=== PATIENT | male | born 1965 | race African-American/Black ===

== ENCOUNTER 2017-09-14 12:45 | Emergency (ER) | payer OTHER ==
[~2017-09-14] VITALS: Ht 165.1 cm; Wt 83.9 kg
[2017-09-14] MEDS ORDERED: LIPITOR10 MG PO (13:01)
[2017-09-14] MEDS ORDERED: HYDROCHLOROTHIA25 M2 PO (13:01)
[2017-09-14] MEDS ORDERED: ATRIPLA TABLET1 EACH PO (13:02)
[2017-09-14 13:37] VITALS: BP 117/78
== END 2017-09-14 13:35 | disposition home or self-care (01) ==
LOC: ER 12:45
DX: M79.644 Pain in right finger(s) (principal); Z88.1 Allergy status to other antibiotic agents

== ENCOUNTER 2017-10-30 22:02 | Emergency (ER) | payer OTHER ==
[~2017-10-30] VITALS: Ht 167.6 cm; Wt 87.1 kg
[~2017-10-30 22:02] MED LIST: ATRIPLA TABLET1 EACH PO; HYDROCHLOROTHIA25 M2 PO; LIPITOR10 MG PO
== END 2017-10-31 00:18 | disposition home or self-care (01) ==
LOC: ER 22:02
DX: S61.411A Laceration without foreign body of right hand, initial encounter (principal); Z88.1 Allergy status to other antibiotic agents; W45.8XXA Other foreign body or object entering through skin, initial encounter; Y93.89 Activity, other specified; Y92.89 Other specified places as the place of occurrence of the external cause; Y99.8 Other external cause status

== ENCOUNTER 2018-07-04 21:22 | Emergency (ER) | payer OTHER ==
[~2018-07-04] VITALS: Ht 165.1 cm; Wt 81.7 kg
[2018-07-04 21:24] VITALS: BP 132/79
== END 2018-07-04 21:59 | disposition home or self-care (01) ==
LOC: ER 21:22
DX: S01.01XA Laceration without foreign body of scalp, initial encounter (principal); Z88.1 Allergy status to other antibiotic agents; W01.198A Fall on same level from slipping, tripping and stumbling with subsequent striking against other object, initial encounter; Y93.01 Activity, walking, marching and hiking; Y92.89 Other specified places as the place of occurrence of the external cause; Y99.8 Other external cause status

== ENCOUNTER 2019-04-15 22:13 | Observation (INO) | payer OTHER ==
[~2019-04-15] VITALS: Ht 167.6 cm; Wt 86.1 kg
[2019-04-15 22:19] VITALS: BP 131/93
[2019-04-15] MEDS ORDERED: BIKTARVY 50-201 EACH (22:29)
[2019-04-15 22:44] LABS: URINE BILIRUBIN NEGATIVE (Negative); URINE BLOOD NEGATIVE (Negative); URINE CLARITY CLEAR; URINE COLOR YELLOW; URINE GLUCOSE-RANDOM* 3+ (Negative); URINE KETONES NEGATIVE (Negative); URINE LEUKOCYTES-REFLEX NEGATIVE (Negative); URINE NITRITE-REFLEX NEGATIVE (Negative); URINE PROTEIN (DIPSTICK) NEGATIVE (Negative); URINE UROBILINOGEN 0.2 E.U./dl (0.2-1.0)
[2019-04-15 23:39] LABS: ABSOLUTE NEUTROPHILS 3.8 thou/uL (1.4-8.2); BASOPHILS 0.6 % (0.0-2.0); EOSINOPHILS 3.7 % (0.0-3.0); HEMATOCRIT 39.1 % (42.0-52.0); HEMOGLOBIN 13.6 gm/dL (14.0-18.0); LYMPHOCYTES 28.8 % (24.0-44.0); MCH 34.5 pg (26.0-34.0); MCV 98.8 fL (80.0-100.0); MONOCYTES 6.3 % (1.0-8.0); PLATELET COUNT 246 thou/uL (150-400); POLYS 60.6 % (36.0-66.0); RBC 3.95 mil/uL (4.50-6.00); RDW 12.5 % (10.5-14.5); WBC 6.3 thou/uL (4.0-11.0)
[2019-04-15 23:56] LABS: ALBUMIN 4.5 g/dL (3.4-5.0); ANION GAP 6 mmol/L (7-16); BUN 33 mg/dL (7-18); CALCIUM 10.6 mg/dL (8.5-10.1); CHLORIDE 90 mmol/L (98-107); CO2 31 mmol/L (21-32); LIPASE 207 U/L (73-393); POTASSIUM 4.2 mmol/L (3.5-5.1); SGOT 24 U/L (15-37); SGPT 36 U/L (30-65); SODIUM 127 mmol/L (136-145); TOTAL PROTEIN 8.8 g/dL (6.4-8.2); TROPONIN-I <0.06 ng/mL (<0.06)
[2019-04-16 00:01] LABS: GLUCOSE 693 mg/dL (74-106)
--- NOTE | 2019-04-16 02:24 | NUR ---
INSULIN DRIP RATE DECREASED TO 4 UNITS/HR PER PROTOCOL. DUE TO DIFFERENCE BETWEEN BG OF 125. ER PHYSICIAN NOTIFIED
[2019-04-16 02:52] VITALS: BP 157/93
[2019-04-16 03:05] VITALS: BP 145/92
[2019-04-16 03:20] VITALS: BP 132/88
--- NOTE | 2019-04-16 05:54 | NUR ---
ADM NOTE: PT ARRIVED ON UNIT ABOUT 0320. ALERT AND ORIENTED . DENIES PAIN,N/V/D. PT ADM FOR UNCONTROLLED BG. ON HEPARIN DRIP AT TIME OF ADM. Q1H BG, 0330 236, 0430 155. 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 NO FURTHER C/O AT THIS TIME. WILL CONTINUE TO FOLLOW POC.
[2019-04-16 06:53] LABS: CALCIUM 9.8 mg/dL (8.5-10.1); CREATININE 1.4 mg/dL (0.7-1.3)
[2019-04-16 06:54] LABS: POTASSIUM 3.1 mmol/L (3.5-5.1)
[2019-04-16 07:40] VITALS: BP 116/77
[2019-04-16 11:18] VITALS: BP 128/93
--- NOTE | 2019-04-16 13:37 | NUR ---
AAOX4. CALM, COOPERATIVE. BG CONTROL DISCUSSED. VOIDING FREQUENTLY PER URINAL. WILL CONTINE TO FOLLOW.
[2019-04-16 19:20] VITALS: BP 109/79
[2019-04-17 01:05] LABS: GLYCOHEMOGLOBIN (HGB A1C) 10.8 % (4.8-5.6)
--- NOTE | 2019-04-17 04:10 | NUR ---
ASSUMED CARE OF PATIENT AT 1900. VSS, AFEBRILE. UP AD MARLENE. EDUCATION GIVEN ABOUT DIABETES. VERBALIZES UNDERSTANDING. FLUIDS INFUSING, INSULIN GIVEN PER ORDERS. PROGRESSING TOWARDS POC GOALS.
[2019-04-17 04:18] VITALS: BP 109/70
[2019-04-17 05:35] LABS: CREATININE 1.4 mg/dL (0.7-1.3); MAGNESIUM 1.5 mg/dL (1.8-2.4); POTASSIUM 3.8 mmol/L (3.5-5.1)
[2019-04-17 05:43] LABS: CHOLESTEROL 108 mg/dL (<200); HDL CHOLESTEROL 24 mg/dL (>40); LDL CHOLESTEROL 38 mg/dL (<100); TC:HDL 4.5 Ratio (Not establshd); TRIGLYCERIDE 232 mg/dL (<150); VLDL 46 mg/dL (<40)
[2019-04-17 05:52] LABS: SERUM ASSESSMENT Clear
[2019-04-17 08:15] VITALS: BP 124/85
[2019-04-17] MEDS ORDERED: ACETAMINOPHEN325 M1 PO (10:49)
[2019-04-17] MEDS ORDERED: LANTUS SUBQ (10:49)
[2019-04-17] MEDS ORDERED: GLUCOPHAGE500 MG PO (10:49)
[2019-04-17] MEDS ORDERED: LISINOPRIL5 MG PO (10:49)
[2019-04-17] MEDS ORDERED: ASPIR 8181 MG PO (10:49)
[2019-04-17] MEDS ORDERED: LIPITOR 20 MG T20 M1 PO (10:49)
[2019-04-17 11:47] VITALS: BP 124/85
--- NOTE | 2019-04-18 08:37 | EKG ---
[place] [address] [address] [facility] [place] [address] ELECTROCARDIOGRAM REPORT Name: MOOKIE DUNLAP Room #: 218-P [facility] M.RKiera#: [id number] ������������������ Admission: 04/16/19 ������������������ Attend Phys: Babak Wetzel MD Discharge: 04/17/19 ������������������ Date of : 69 Report #: [id number] ����������������������������������������������������������������� [id number] THIS REPORT FOR: //name// [facility] ED Test Date: 2019-04-15 Test Time: 22:44:23 Pat Name: MOOKIE DUNLAP Department: Room: 218 Gender: M Hand Scudder: CATHLEEN : 1965 Requested By: Braxton Rogers Order Number: [id number] MD: Jamie Kessler Measurements Intervals [place] Rate: 71 P: 31 ME: 153 QRS: 22 QRSD: 93 T: 44 QT: 347 QTc: 377 Interpretive Statements Sinus rhythm Minimal, diffuse ST segment elevation No previous ECG available for comparison Electronically Signed On 04-18-2019 8:37:30 CDT by Jamie Kessler [email or web address] ��������������������������������������������� <ELECTRONICALLY SIGNED> ���������������������������������������� By: Jamie Kessler MD, [facility] ��������������������������������������������� 04/18/19 [id number] Jamie Kessler MD, FACC /EPI
== END 2019-04-17 12:46 | disposition home or self-care (01) ==
LOC: ER 22:13 → 2N 23:55 → EROBS 04-16 01:00 → 2N 04-16 03:49
PROVIDERS: Emergency Medicine; Nurse Practitioner Acute Care; ADMIT Internal Medicine
DX: E11.65 Type 2 diabetes mellitus with hyperglycemia (principal); E72.51 Non-ketotic hyperglycinemia; E11.00 Type 2 diabetes mellitus with hyperosmolarity without nonketotic hyperglycemic-hyperosmolar coma (NKHHC); I12.9 Hypertensive chronic kidney disease with stage 1 through stage 4 chronic kidney disease, or unspecified chronic kidney disease; E11.22 Type 2 diabetes mellitus with diabetic chronic kidney disease; E11.21 Type 2 diabetes mellitus with diabetic nephropathy; N18.9 Chronic kidney disease, unspecified; N17.9 Acute kidney failure, unspecified; E78.5 Hyperlipidemia, unspecified; E66.9 Obesity, unspecified; B20 Human immunodeficiency virus [HIV] disease; E87.1 Hypo-osmolality and hyponatremia; Z79.82 Long term (current) use of aspirin; Z79.4 Long term (current) use of insulin; Z79.899 Other long term (current) drug therapy

== ENCOUNTER 2021-10-25 11:12 | Emergency (ER) | payer OTHER ==
[~2021-10-25] VITALS: Ht 167.6 cm; Wt 88.9 kg
[~2021-10-25 11:12] MED LIST changes: +ACETAMINOPHEN325 M1 PO; +ASPIR 8181 MG PO; +BIKTARVY 50-201 EACH; +GLUCOPHAGE500 MG PO; +LANTUS SUBQ; +LIPITOR 20 MG T20 M1 PO; +LISINOPRIL5 MG PO
[2021-10-25] MEDS ORDERED: NORVASC5 MG PO (11:29)
[2021-10-25] MEDS ORDERED: PRAVACHOL40 MG PO (11:30)
[2021-10-25 11:44] LABS: HEMATOCRIT 36.6 % (42.0-52.0); HEMOGLOBIN 12.7 gm/dL (14.0-18.0); MCHC 34.5 g/dL (28.0-37.0); MCV 95.5 fL (80.0-100.0); RBC 3.84 mil/uL (4.50-6.00); RDW 12.8 % (10.5-14.5)
[2021-10-25 12:33] LABS: ALBUMIN 3.8 g/dL (3.4-5.0); CALCIUM 8.8 mg/dL (8.5-10.1); CREATININE 2.4 mg/dL (0.7-1.3); POTASSIUM 3.6 mmol/L (3.5-5.1); TOTAL BILIRUBIN 0.6 mg/dL (0.2-1.0); TOTAL PROTEIN 7.1 g/dL (6.4-8.2)
[2021-10-25 12:55] LABS: URINE BILIRUBIN NEGATIVE (Negative); URINE BLOOD TRACE (Negative); URINE CLARITY CLEAR; URINE COLOR YELLOW; URINE GLUCOSE-RANDOM* 3+ (Negative); URINE KETONES NEGATIVE (Negative); URINE LEUKOCYTES-REFLEX NEGATIVE (Negative); URINE NITRITE-REFLEX NEGATIVE (Negative); URINE PROTEIN (DIPSTICK) 2+ (Negative); URINE SPECIFIC GRAVITY 1.025 (1.005-1.035); URINE UROBILINOGEN 0.2 E.U./dl (0.2-1.0)
[2021-10-25 13:33] LABS: SQUAMOUS 0-3 Few /LPF (0-3)
[2021-10-25 13:34] LABS: BACTERIA-REFLEX 1-9 Few /HPF (None Seen); CASTS None Seen /LPF (None Seen); CRYSTALS None Seen /LPF (None Seen); URINE RBC 1-2 Rare /HPF (NONE SEEN); URINE WBC-REFLEX 0-5 Rare /HPF (0-5)
[2021-10-25 16:22] LABS: CALCIUM 8.2 mg/dL (8.5-10.1); CREATININE 2.3 mg/dL (0.7-1.3); POTASSIUM 3.3 mmol/L (3.5-5.1)
[2021-10-25] MEDS ORDERED: LEVEMIR FL100 UNIT/2 SUBQ (16:55)
[2021-10-25 16:56] VITALS: BP 133/75
== END 2021-10-25 17:02 | disposition home or self-care (01) ==
LOC: ER 11:12
PROVIDERS: Nurse Practitioner Family
DX: E11.65 Type 2 diabetes mellitus with hyperglycemia (principal); E11.22 Type 2 diabetes mellitus with diabetic chronic kidney disease; N18.9 Chronic kidney disease, unspecified; I10 Essential (primary) hypertension; E78.5 Hyperlipidemia, unspecified; Z21 Asymptomatic human immunodeficiency virus [HIV] infection status; Z79.82 Long term (current) use of aspirin; Z79.4 Long term (current) use of insulin; Z79.899 Other long term (current) drug therapy; Z88.1 Allergy status to other antibiotic agents; Z88.8 Allergy status to other drugs, medicaments and biological substances